=== PATIENT | female | born 1980 | race Two or more races ===

== ENCOUNTER 2016-07-27 10:27 | Emergency (ER) | payer SELFPAY ==
[~2016-07-27] VITALS: Ht 162.6 cm; Wt 65.8 kg
== END 2016-07-27 11:15 | disposition home or self-care (01) ==
LOC: EDBD 10:27 → ER 10:38
DX: T40.1X1A Poisoning by heroin, accidental (unintentional), initial encounter (principal); F17.210 Nicotine dependence, cigarettes, uncomplicated; F12.10 Cannabis abuse, uncomplicated; Y93.9 Activity, unspecified; Y99.9 Unspecified external cause status; Y92.9 Unspecified place or not applicable

== ENCOUNTER 2018-11-16 14:33 | Emergency (ER) | payer SELFPAY ==
[~2018-11-16] VITALS: Ht 170.2 cm; Wt 65.8 kg
[2018-11-16] MEDS ORDERED: SODIUM CHLORIDE 0.9% 1,000 ML IV ONE ×2 (16:00→17:45)
[2018-11-16 16:37] LABS: Basophils # (auto) 0.1 uL; Eosinophils # (auto) 0 uL; Eosinophils % (auto) 0.1 % (0.0-7.0); Hematocrit 33.9 % (36.0-46.0); Hemoglobin 10.3 g/dL (12.2-16.2); Lymphocytes % (auto) 19.8 % (10.0-50.0); Mean Corpuscular Hemoglobin 23.1 pg (28.0-32.0); Mean Corpuscular Hgb Conc. 30.3 g/dL (32.0-36.0); Mean Corpuscular Volume 76.4 fL (80.0-100.0); Monocytes # (auto) 0.2 uL; Monocytes % (auto) 4.2 % (0.0-12.0); Neutrophils # (auto) 3.9 uL; Neutrophils % (auto) 74.9 % (37.0-80.0); Platelet Count (auto) 280 10^3/uL (140-450); Red Blood Cells 4.44 10^6/uL (4.0-5.20); White Blood Cell 5.2 10^3/uL (4.4-10.8)
[2018-11-16 16:41] LABS: Red Cell Distribution Width 21.3 % (11.8-14.3)
[2018-11-16 16:44] LABS: Albumin 3.3 g/dL (3.4-5.0); Anion Gap 9 (5-15); Blood Alcohol < 3.0 mg/dL (0-5); Calcium 8.5 mg/dL (8.5-10.1); Carbon Dioxide 23 mmol/L (21-32); Chloride 107 mmol/L (98-107); Glucose 102 mg/dL (74-106); Potassium 3.7 mmol/L (3.5-5.1); Sodium 139 mmol/L (136-145)
[2018-11-16 16:52] LABS: Alanine Aminotransferase 17 U/L (13-56); Alkaline Phosphatase 76 U/L (45-117); Aspartate Aminotransferase 22 U/L (15-37); BUN/Creatinine Ratio 10.7; Bilirubin, Total 0.5 mg/dL (0.2-1.0); Blood Urea Nitrogen 8 mg/dL (7-18); GFR African American 112 mL/min; GFR Non-African American 92 mL/min; Total Protein 7.8 g/dL (6.4-8.2)
[2018-11-16 17:50] LABS: Urine Pregnacy Test Negative (Negative)
[2018-11-16 17:52] LABS: Urine Bacteria NONE SEEN /hpf (None Seen); Urine Blood Negative /uL (Negative); Urine Specific Gravity 1.007 (1.001-1.035); Urine WBC <1 /hpf (0 - 5)
[2018-11-16 18:08] LABS: Alcohol, Urine < 3.0 mg/dL (0-5)
[2018-11-16 18:17] LABS: Amphetamine Screen, Urine NEGATIVE (NEGATIVE); Barbiturate Scree,Urine NEGATIVE (NEGATIVE); Benzodiazephine Screen, Urine NEGATIVE (NEGATIVE); Cannabinoid Screen, Urine NEGATIVE (NEGATIVE); Cocaine Screen, Urine NEGATIVE (NEGATIVE); Opiate Scree,Urine POSITIVE (NEGATIVE); Phencyclidine Screen, Urine NEGATIVE (NEGATIVE)
[2018-11-17 06:18] VITALS: BP 125/84
== END 2018-11-17 06:19 | disposition home or self-care (01) ==
LOC: ER 14:33 → EDBD 14:33 → EDSEX 14:33 → ER 11-17 06:19
DX: F60.2 Antisocial personality disorder (principal); F11.10 Opioid abuse, uncomplicated; F17.210 Nicotine dependence, cigarettes, uncomplicated; Z98.51 Tubal ligation status; Z76.5 Malingerer [conscious simulation]
CPT/HCPCS: 36415; 80053; 80307; 80320; 81001; 81025; 84484; 85025; 96360; 96361; 99284; J7030

== ENCOUNTER 2019-09-14 06:39 | Emergency (ER) | payer SELFPAY ==
[~2019-09-14] VITALS: Ht 162.6 cm; Wt 59.9 kg
[2019-09-14 07:28] VITALS: BP 127/82
[2019-09-14] MEDS ORDERED: LIDOCAINE 1% HCL (LOCAL ANESTH.) INJ 20ML MDV IJ ONE (07:45)
[2019-09-14] MEDS ORDERED: cefTRIAXone SOD 1,000 MG VL IM ONE (07:45)
[2019-09-14] MEDS ORDERED: IBUPROFEN 800 MG TAB PO ONE (07:45)
== END 2019-09-14 08:03 | disposition home or self-care (01) ==
LOC: ER 06:39
DX: L03.116 Cellulitis of left lower limb (principal); L03.115 Cellulitis of right lower limb; F17.210 Nicotine dependence, cigarettes, uncomplicated; F11.10 Opioid abuse, uncomplicated; Z98.51 Tubal ligation status
CPT/HCPCS: 96372; 99283; J0696; J2001

== ENCOUNTER 2024-06-09 14:56 | Inpatient (IN) | payer OTHER ==
[~2024-06-09] VITALS: Ht 165.1 cm; Wt 54.4 kg
[2024-06-09] MEDS: MORPHINE SULFATE 4 MG/ML SYR/VIAL IV ONE (15:15)
[2024-06-09] MEDS: ONDANSETRON HCL 4 MG/2 ML VIAL IV ONE (15:15)
[2024-06-09] MEDS: SODIUM CHLORIDE 0.9% 1,000 ML IV ONE ×3 (15:15→16:45)
--- NOTE | 2024-06-09 15:17 | ED.PDOC ---
GI ASSESSMENT HPI Comments 44 year old female JOE presents to the ED with chief complaint of abdominal pain. Patient reports that she has been experiencing suprapubic abdominal pain with associated symptoms of head and neck pain along with orange colored urine being noted. EMS relays patient was cool to the touch on route. Patient denies any dysuria, hematuria, N/V/D, or fever. Chief Complaint: Abdominal Pain Time Seen by MD: 15:14 Primary Care Provider: NONE Reviewed Notes: Nurses Notes, Film Spooler Notes, Medications, Allergies Allergies: Coded Allergies: NO KNOWN ALLERGIES (Unverified , 07/27/16) Information Source: Patient, Emergency Med Personnel Mode of Arrival: EMS Timing: Days Duration: Since onset Prehospital treatment: None Quality: Aching Vomitus: None Stool: Normal Severity: Moderate Recent: None Recent Hx of: None Pain Location: Suprapubic Modifying Factors: Nothing Associated sign and symptoms: Abdominal Pain, Other (Dolph colored urine, hea dache) Past Medical History PAST MEDICAL HISTORY: Denies 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 Family History Family History: Reviewed,noncontributory to illness Social History Smoker: Cigarettes Alcohol: Occasionally Drugs: Heroin Lives In: Home Constitutional: denies: chills, diaphoresis, fatigue, fever, malaise, sweats, weakness, others EENTM: denies: blurred vision, double vision, ear bleeding, ear discharge, ear drainage, ear pain, ear ringing, eye pain, eye redness, hearing loss, mouth pain, mouth swelling, nasal discharge, nose bleeding, nose congestion, nose pain, photophobia, tearing, throat pain, throat swelling, voice changes, others Respiratory: denies: cough, hemoptysis, orthopnea, SOB at rest, shortness of breath, SOB with excertion, stridor, wheezing, others Cardiovascular: denies: chest pain, dizzy spells, diaphoresis, Dyspnea on exertion, edema, irregular heart beat, left arm pain, lightheadedness, palpitations, PND, syncope, others Gastrointestinal: reports: abdominal pain, others (Dolph colored urine); denies: abdomen distended, blood streaked bowels, constipated, diarrhea, dysphagia, difficulty swallowing, hematemesis, melena, nausea, poor appetite, poor fluid intake, rectal bleeding, rectal pain, vomiting Genitourinary: denies: abnormal vagina bleeding, burning, dyspareunia, dysuria, flank pain, frequency, hematuria, incontinence, pain, , vagina discharge, urgency, others Neurological: reports: headache; denies: dizziness, fainting, left sided numbness, left sided weakness, numbness, paresthesia, pre-existing deficit, right sided numbness, right sided weakness, seizure, speech problems, tingling, tremors, weakness, others Musculoskeletal: denies: back pain, gout, joint pain, joint swelling, muscle pain, muscle stiffness, neck pain, others Integumetry: denies: bruises, change in color, change in hair/nails, dryness, laceration, lesions, lumps, rash, wounds, others Allergic/Immunocompromised: denies: Difficulty Healing, Frequent Infections, Hives, Itching, others Hematologic/Lymphatic: denies: anemia, blood clots, easy bleeding, easy bruising, swollen glands, others Endocrine: denies: excessive hunger, excessive sweating, excessive thirst, excessive urination, flushing, intolerance to cold, intolerance to heat, unexplained weight gain, unexplained weight loss, others Psychiatric: denies: anxiety, bipolar disorder, depression, hopeless, panic disorder, schizophrenia, sleepless, suicidal, others All Other Systems: Reviewed and Negative Physical Exam General Appearance: Moderate Distress, Normal HEENT: Normal ENT Inspection, PERRL/EOMI Neck: Full Range of Motion, Non-Tender, Normal, Normal Inspection Respiratory: Chest Non-Tender, Lungs Clear, No Accessory Muscle Use, No Respi ratory Distress, Normal Breath Sounds Cardiovascular: No Edema, No JVD, No Murmur, No Gallop, Normal Peripheral Pulses, Regular Rate/Rhythm Breast Exam: Deferred Gastrointestinal: No Organomegaly, Non Tender, No Pulsatile Mass, Normal Bowel Sounds, Soft Genitalia: Deferred Pelvic: Deferred Rectal: Deferred Extremities: No calf tenderness, Normal capillary refill, Normal inspection, Normal range of motion, Non-tender, No pedal edema Musculoskeletal : Apperance: Normal Neurologic: Alert, deck officer II-XII nml as Tested, No Motor Deficits, Normal Affect, Normal Mood, No Sensory Deficits Cerebellar Function: NOT DONE Reflexes: NOT DONE Skin: Dry, Normal Color, Warm Peripheral Pulses: 3+ Radial (R), 3+ Radial (L) Lymphatic: No Adenopathy Was a procedure done? Was a procedure done?: Yes Sedation Sedation?: Yes Informed consent obtained: Yes Sedation start time: 17:05 Sedation end time: 17:15 Sedation total time: 10 minutes Central Line Recorder of insertion practice: Salvage Winder Indication: Suspected infection Room prepared for procedure: Yes Salvage Winder performed hand hygien: Yes Maximal sterile barrier precau: Mask/Eye shield, Sterile gown, Cap, Sterlie gloves, Large sterlie drape Skin Preparation: Chlorhexidine gluconate Skin preparation completely dr: Yes Insertion site: Right, Internal jugular Central line catheter type: [id number] dialysis Number of lumens: 3 Post Assessment: Chest X-Ray, Proper placement Informed consent obtained: Yes Risks/benefits/alt described: Yes Intubation Indication: Respiratory Insufficiency, Airway Protection Prep: Preoxygenation Pretreated with: Sedation Medicated with: Other (20mg Etomidate, 100mg Rocuronium) Intubation Approach: Orotracheal Intubation size: cm (8) Informed consent obtained: Yes Risks/benefits/alt described: Yes UTO Consent Supervised respiratory therapist performing intubation. GI differential Dx Differential Diagnosis: Constipation, Diverticular disease, Esophagitis, Gastritis/PUD, Gastroenteritis X-Ray, Labs, Meds, VS Vital Signs Date Time Temp Pulse Resp B/P (MAP) Pulse Ox O2 Delivery O2 Flow Rate FiO2 06/09/24 17:00 119 06/09/24 16:08 119 30 123/86 (98) 70 06/09/24 16:08 119 30 70 Nasal Cannula* 6 44 Lab Test 06/09/24 16:44 06/09/24 15:20 Range/Units Blood Gas Specimen Type Arterial Blood Gas Sample Site Left radial Blood Gas Patient Temperature 37.0 Arterial Blood Date Drawn [id number] Arterial Blood pH 7.348 L 7.350-7.450 Arterial Blood Partial Pressure CO2 29.2 L 32.0-45.0 mmHg Arterial Blood Partial Pressure O2 49.2 *L 83.0-108.0 mmHg Arterial Blood HCO3 15.7 L 21.0-28.0 mmol/L Arterial Blood Oxygen Saturation 80.0 *L 94.0-98.0 % Arterial Blood Base Excess -8.7 L -2.0-3.0 mmol/L Arterial Blood Oxyhemoglobin 79.1 L 94.0-98.0 % Arterial Blood Carboxyhemoglobin 0.7 0.5-1.5 % Arterial Blood Methemoglobin 0.4 0.0-1.5 % René Test Yes Blood Gas Total Hemoglobin 11.70 L 12.0-16.0 g/dL Blood Gas Liter Flow 15.00 Blood Gas Modality Mask - nrb FiO2 % 100.0 Blood Gas Critical Value Read Back Yes Blood Gas Notified Whom Dr. elisabeth fink Blood Gas Notified Time [id number] Blood Gas Notified By Surveyor Helper yuriy alanis White Blood Count Pending Red Blood Count Pending Hemoglobin Pending Hematocrit Pending Mean Corpuscular Volume Pending Mean Corpuscular Hemoglobin Pending Mean Corpuscular Hemoglobin Concent Pending Red Cell Distribution Width Pending Platelet Count Pending Mean Platelet Volume Pending Neutrophils (%) (Auto) Pending Lymphocytes (%) (Auto) Pending Monocytes (%) (Auto) Pending Basophils (%) (Auto) Pending Neutrophils # (Auto) Pending Lymphocytes # (Auto) Pending Monocytes # (Auto) Pending Sodium Level 138 136-145 mmol/L Potassium Level 3.1 L 3.5-5.1 mmol/L Chloride Level 102 98-107 mmol/L Carbon Dioxide Level 18 L 20-31 mmol/L Anion Gap 18 H 5-15 Blood Urea Nitrogen 79 H 9-23 mg/dL Creatinine 2.22 H 0.550-1.02 mg/dL Glomerular Filtration Rate Calc 28 >90 mL/min BUN/Creatinine Ratio 35.6 H 10.0-20.0 Serum Glucose 82 74-106 mg/dL Calcium Level 10.2 8.7-10.4 mg/dL Magnesium Level 2.2 1.6-2.6 mg/dL Total Bilirubin 0.9 0.2-1.0 mg/dL Aspartate Amino Transferase (AST) 102 H 13-40 U/L Alanine Aminotransferase (ALT) 32 7-40 U/L Alkaline Phosphatase 184 H 46-116 U/L Troponin I High Sensitivity < 3 L </=34 ng/L Total Protein 6.4 5.7-8.2 g/dL Albumin 3.6 3.2-4.8 g/dL Amylase Level < 20 L 30-118 U/L Lipase 21 12-53 U/L Patient alert. Complaining of suprapubic pain. Vitals stable. Answering all questions. Continues to be in severe pain. Establish intravenous access. Was given fluids. Possible sepsis from urine. Blood pressure elevated. Possibly from pain. Explained to the patient. Continue cardiac monitoring. Patient is saturation has been low. Gap is increased. Potassium slightly low. Rule out a clot. Spoke with patient about contrast for PE study. Risk and benefit. Was given Mucomyst to protect her kidneys. Time of 1ST Reevaluation: 16:14 Reevaluation 1ST: Unchanged Patient Education/Counseling: Diagnosis, Treatment Family Education/Counseling: No Family Present Departure 1 Departure Time of Disposition: 15:51 Impression: Primary Impression: Acute respiratory failure Qualified Codes: J96.01 - Acute respiratory failure with hypoxia Additional Impressions: Sepsis due to urinary tract infection Acute abdominal pain Acute tubular necrosis Disposition: ADMITTED INPATIENT Admit to: Med Surg Condition: Guarded Critical Care Note Critical Care Time?: Yes (90 min-critical care time only) Stability Stability form required: No Heart Score Heart Score: Heart Score Response (Comments) Value History N/A 0 EKG N/A 0 Age N/A 0 Risk Factors N/A 0 Troponin N/A 0 Total 0 I personally scribed for AURORA FINK MD ([email or web address]) on 06/09/24 at 15:17. Electronically submitted by Angel Craig ([email or web address]). I personally scribed for AURORA FINK MD ([email or web address]) on 06/09/24 at 17:04. Electronically submitted by Angel Craig ([email or web address]). I personally scribed for AURORA FINK MD ([email or web address]) on 06/09/24 at 17:07. Electronically submitted by Angel Craig ([email or web address]). AURORA FINK MD Jun 09, 2024 15:17
[2024-06-09 16:07] LABS: Alanine Aminotransferase 32 U/L (7-40); Albumin 3.6 g/dL (3.2-4.8); Anion Gap 18 (5-15); BUN/Creatinine Ratio 35.6 (10.0-20.0); Calcium 10.2 mg/dL (8.7-10.4); Chloride 102 mmol/L (98-107); Glucose 82 mg/dL (74-106); Lipase 21 U/L (12-53); Magnesium 2.2 mg/dL (1.6-2.6); Sodium 138 mmol/L (136-145)
[2024-06-09 16:08] VITALS: PULSE 119; RESP 30; O2SAT 70
[2024-06-09 16:08] LABS: Bilirubin, Total 0.9 mg/dL (0.2-1.0); Total Protein 6.4 g/dL (5.7-8.2)
[2024-06-09 16:31] LABS: Alkaline Phosphatase 184 U/L (46-116); Amylase < 20 U/L (30-118); Aspartate Aminotransferase 102 U/L (13-40); Blood Urea Nitrogen 79 mg/dL (9-23); Carbon Dioxide 18 mmol/L (20-31); Potassium 3.1 mmol/L (3.5-5.1)
[2024-06-09] MEDS: IOHEXOL 350 MG/ML 100ML IJ ONE (16:41)
[2024-06-09] MEDS: cefTRIAXone 1GM/50ML D5W 50 ML IV ONE (16:45)
[2024-06-09] MEDS: AZITHROMYCIN 500MG/ 250ML 250 ML IV ONE (16:45)
[2024-06-09] MEDS: ACETYLCYSTEINE ORAL for CIN 20%(200MG/ML) 4ML PO ONE (16:45)
[2024-06-09] MEDS: HEPARIN SODIUM (PORCINE) 5000 UNITS/ML 1ML VIAL IV ONE ×2 (16:45→18:30)
[2024-06-09 16:49] LABS: Base Excess -8.7 mmol/L (-2.0-3.0)
[2024-06-09 17:26] VITALS: BP 126/75; PULSE 117; RESP 18; O2SAT 85
[2024-06-09 17:39] LABS: White Blood Cell 2.9 10^3/uL (4.4-10.8)
[2024-06-09] MEDS: ETOMIDATE (2MG/ML) 20ML VIAL IV ONE ×2 (17:39→17:43)
[2024-06-09 17:42] LABS: Hematocrit 35.2 % (36.0-46.0); Mean Corpuscular Hemoglobin 22.5 pg (28.0-32.0); Mean Corpuscular Hgb Conc. 31.2 g/dL (32.0-36.0); Platelet Count (auto) 58 10^3/uL (140-450); Red Blood Cells 4.89 10^6/uL (4.0-5.20); Red Cell Distribution Width 19.1 % (11.8-14.3)
[2024-06-09] MEDS: ROCURONIUM 10MG/ML 10ML VIAL IV ONE ×2 (17:42→17:43)
[2024-06-09] MEDS: MIDAZOLAM DRIP 50 mg/50mL 50 ML IV SCH (17:43)
[2024-06-09] MEDS: MIDAZOLAM DRIP 50 mg/50mL 50 ML IV ONE (17:43)
[2024-06-09 17:58] LABS: INR 1.07 (0.9-1.15); Partial Thromboplastin Time 36.4 SEC (24.5-34.5); Prothrombin Time 11.3 sec (9.3-11.8)
[2024-06-09 18:10] LABS: Amphetamine Screen, Urine Neg (NEGATIVE)
[2024-06-09 18:11] LABS: Opiate Scree,Urine Neg (NEGATIVE); Phencyclidine Screen, Urine Neg (NEGATIVE)
[2024-06-09 18:24] LABS: Urine Bacteria FEW /hpf (None Seen); Urine Blood 1+ /uL (Negative); Urine Clarity Turbid (Clear); Urine Color Yellow (Yellow); Urine Protein, UAD 1+ (Negative); Urine Specific Gravity 1.017 (1.001-1.035); Urine Urobilinogen Normal (Negative); Urine WBC 4 /hpf (0 - 5); Urine pH 5.5 (5.0-9.0)
[2024-06-09 18:28] LABS: Barbiturate Scree,Urine Neg (NEGATIVE); Benzodiazephine Screen, Urine Neg (NEGATIVE); Cannabinoid Screen, Urine Neg (NEGATIVE); Cocaine Screen, Urine Neg (NEGATIVE)
[2024-06-09] MEDS: HEPARIN DRIP/D5W 100UNITS/ML 250 ML IV SCH ×2 (18:30→20:59)
[2024-06-09 18:31] LABS: Lactic Acid w/Reflex 6.5 mmol/L (0.4-2.0)
--- NOTE | 2024-06-09 18:49 | DVH ---
CLINICAL HISTORY: druguse TECHNIQUE: Helical imaging carried out from skull base to vertex without intravenous contrast. This e xam was performed according to our departmental dose optimization program. Up-to-date CT equipment an d radiation dose reduction techniques are utilized as appropriate. CTDIVol: [CTDIvol] mGy DLP: 879.25 mGy-cm WID: COMPARISON: None FINDINGS: The ventricles and subarachnoid spaces are normal in size and configuration. There is no midline beverley ft or mass effect. The brantley white matter interfaces are maintained. The basal cisterns are patent. Th ere is no evidence of acute intracranial hemorrhage or extra-axial fluid collection. The mastoid air cells and visualized paranasal sinuses are well-aerated. IMPRESSION: No acute intracranial abnormality.
--- NOTE | 2024-06-09 18:51 | DVH ---
EXAM: XY CHEST XRAY 1 VIEW TECHNIQUE: Single frontal chest radiograph CLINICAL HISTORY: POST NG/Intubation COMPARISON: None Findings/Impression: Frontal chest radiograph demonstrates no acute osseous or superficial soft tissue abnormalities. Endotracheal tube terminates 5.5 cm from the giselle. Enteric tube is overlying the plane of the stoma ch. Right sided IJ catheter terminates near the proximal SVC. The trachea is midline. The cardiac silhouette and mediastinum are within normal limits. Moderate to large right pleural effusion with compressive atelectasis and tracking into the fissure. A superimposed infectious process is not excluded. No pneumothorax.
[2024-06-09 18:58] VITALS: BP 147/82; PULSE 131; RESP 28; O2SAT 76
[2024-06-09] MEDS: SODIUM BICARB 8.4% 50Meq/50ml SYR INJ ONE ×2 (18:59→22:54)
[2024-06-09 19:09] LABS: Band Neutrophils % (manual) 5; Basophils % (manual) 0 (0.0-2.0); Blast Cells 0; Eosinophils % (manual) 0 (0-7); Lymphocytes % (manual) 23 (10.0-50.0); Metamyelocytes % 0; Monocytes % (manual) 4 (0-12); Myelocytes % 0; Promyelocytes % 0; Reactive Lymphocytes 0
[2024-06-09 19:10] LABS: Anisocytosis Slight; Hypochromia Moderate; Platelet Estimate Decreased
[2024-06-09 19:16] LABS: Hemoglobin 9.8 g/dL (12.2-16.2)
[2024-06-09 19:18] LABS: Hematocrit 31.4 % (36.0-46.0); Mean Corpuscular Hemoglobin 22.4 pg (28.0-32.0); Mean Corpuscular Hgb Conc. 31.3 g/dL (32.0-36.0); Mean Corpuscular Volume 71.8 fL (80.0-100.0); Platelet Count (auto) 62 10^3/uL (140-450); Red Blood Cells 4.37 10^6/uL (4.0-5.20); Red Cell Distribution Width 19.2 % (11.8-14.3); White Blood Cell 4.7 10^3/uL (4.4-10.8)
--- NOTE | 2024-06-09 19:22 | DVHINCON2 ---
Date of service: Jun 09, [address] Fink Reason for Consultation Ventilator management History of Present Illness 44-year-old woman with no prior medical history of presented with abdominal pain. She began experiencing suprapubic abdominal pain that was associated with head and neck pain. She had orange colored urine. Patient is cold to touch. She was currently sedated, intubated on mechanical ventilation. Stat pulmonology consultation called for bronchoscopy on mechanical ventilation management. Review of systems: Unable to obtain due to patient's critical condition. Past medical history: No prior medical history. Past surgical history: BTL Medications: Reviewed Allergies: No known drug allergies. Family history: No family history of premature CAD. No family history of lung disease. Social history: Smoker of cigarettes. Social alcohol use. Heroin use. Lives at home. Allergies: Coded Allergies: NO KNOWN ALLERGIES (Unverified , 07/27/16) Current Medications Current Medications Medications (Trade) Dose Ordered Sig/Naomie Route PRN Reason Start Time Stop Time Status Last Admin Midazolam HCl 50 ml @ 1 mls/hr Q24H IV 06/09/24 17:00 06/09/24 17:43 Heparin Sodium/ Dextrose 250 ml @ 10 mls/hr Q24H IV 06/09/24 18:30 06/09/24 18:30 Vital Signs Vital Signs Date Time Temp Pulse Resp B/P (MAP) Pulse Ox O2 Delivery O2 Flow Rate FiO2 06/09/24 18:43 127/73 06/09/24 18:32 140 30 72 06/09/24 16:08 Nasal Cannula* 6 44 06/09/24 15:05 98.6 Physical Exam Gen.: Patient lying in bed in medical ICU. Sedated, intubated on mechanical ventilator. Head: Normocephalic, atraumatic. Eyes: PERRLA. Ears: Normal external anatomy. Throat: Endotracheal tube and orogastric tube in place. Neck: Supple, trachea midline. Chest: Transmitted breath sounds bilaterally. Decreased air entry bilaterally. No wheezing. Bibasilar crackles. Cardio vascular: Positive S1, positive S2. Regular rate and rhythm. Abdomen: Positive bowel sounds in all 4 quadrants. Soft, nontender, nondistended. : Girard in place. Normal external genitalia. Rectal: Deferred Skin: Warm, dry. Intact. Extremities: 2+ radial pulses bilaterally. No lower extremity edema. Neuro: Sedated. Labs/Diagnostic Data Labs Test 06/09/24 18:49 06/09/24 17:44 06/09/24 17:19 06/09/24 16:44 Range/Units Urine Color Yellow Yellow Urine Clarity Turbid H Clear Urine pH 5.5 5.0-9.0 Urine Specific [place] 1.017 1.001-1.035 Urine Protein 1+ H Negative Urine Ketones Negative Negative Urine Blood 1+ H Negative /uL Urine Nitrite Negative Negative Urine Bilirubin Negative Negative Urine Urobilinogen Normal Negative mg/dL Urine Leukocyte Esterase Negative Negative /uL Urine RBC 3 0 - 4 /hpf Urine WBC 4 0 - 5 /hpf Urine Squamous Epithelial Cells Mod <5 /hpf Urine Bacteria Few H None Seen /hpf Urine Glucose Normal Normal mg/dL Urine Opiates Screen Neg NEGATIVE Urine Fentanyl Screen Pos NEGATIVE Urine Barbiturates Screen Neg NEGATIVE Urine Phencyclidine Screen Neg NEGATIVE Urine Amphetamines Screen Neg NEGATIVE Urine Benzodiazepines Screen Neg NEGATIVE Urine Cocaine Screen Neg NEGATIVE Urine Cannabinoids Screen Neg NEGATIVE Eosinophils (%) (Auto) 0.0-7.0 % Eosinophils # (Auto) 0-0.8 10 ^3/uL Basophils # (Auto) 0-0.2 10 ^3/uL Differential Total Cells Counted 100.0 100 Neutrophils % (Manual) 68 37.0-80.0 Band Neutrophils % (Manual) 5 Lymphocytes % (Manual) 23 10.0-50.0 Monocytes % (Manual) 4 0-12 Eosinophils % (Manual) 0 0-7 Basophils % (Manual) 0 0.0-2.0 Metamyelocytes % (manual) 0 Myelocytes % (Manual) 0 Promyelocytes % (Manual) 0 Blast Cells % (Manual) 0 Nucleated Red Blood Cells % Reactive Lymphocytes 0 Platelet Estimate Decreased Hypochromasia (manual) Moderate Anisocytosis (manual) Slight Microcytosis Moderate Beta HCG, Quantitative 1.9 1.5-4.2 mIU/mL Blood Gas Specimen Type Arterial Blood Gas Sample Site Left radial Blood Gas Patient Temperature 37.0 Arterial Blood Date Drawn [id number] Arterial Blood pH 7.348 L 7.350-7.450 Arterial Blood Partial Pressure CO2 29.2 L 32.0-45.0 mmHg Arterial Blood Partial Pressure O2 49.2 *L 83.0-108.0 mmHg Arterial Blood HCO3 15.7 L 21.0-28.0 mmol/L Arterial Blood Oxygen Saturation 80.0 *L 94.0-98.0 % Arterial Blood Base Excess -8.7 L -2.0-3.0 mmol/L Arterial Blood Oxyhemoglobin 79.1 L 94.0-98.0 % Arterial Blood Carboxyhemoglobin 0.7 0.5-1.5 % Arterial Blood Methemoglobin 0.4 0.0-1.5 % René Test Yes Blood Gas Total Hemoglobin 11.70 L 12.0-16.0 g/dL Blood Gas Liter Flow 15.00 Blood Gas Modality Mask - nrb FiO2 % 100.0 Blood Gas Critical Value Read Back Yes Blood Gas Notified Whom Dr. elisabeth fink Blood Gas Notified Time [id number] Blood Gas Notified By Chair Post Machine Operator yuriy Uribe 06/09/24 15:20 Range/Units Sodium Level 138 136-145 mmol/L Potassium Level 3.1 L 3.5-5.1 mmol/L Chloride Level 102 98-107 mmol/L Carbon Dioxide Level 18 L 20-31 mmol/L Anion Gap 18 H 5-15 Blood Urea Nitrogen 79 H 9-23 mg/dL Creatinine 2.22 H 0.550-1.02 mg/dL Glomerular Filtration Rate Calc 28 >90 mL/min BUN/Creatinine Ratio 35.6 H 10.0-20.0 Serum Glucose 82 74-106 mg/dL Calcium Level 10.2 8.7-10.4 mg/dL Magnesium Level 2.2 1.6-2.6 mg/dL Total Bilirubin 0.9 0.2-1.0 mg/dL Aspartate Amino Transferase (AST) 102 H 13-40 U/L Alanine Aminotransferase (ALT) 32 7-40 U/L Alkaline Phosphatase 184 H 46-116 U/L Troponin I High Sensitivity < 3 L </=34 ng/L Total Protein 6.4 5.7-8.2 g/dL Albumin 3.6 3.2-4.8 g/dL Amylase Level < 20 L 30-118 U/L Lipase 21 12-53 U/L Assessment Impression: Acute hypoxic respiratory failure On mechanical ventilator Pneumonia Atelectasis Metabolic acidosis Plan: ABG severe acidemia Placed on PC mode, incresed Peep to 16 to improve oxygenation. Adjusted Pinsp to achieve Vt of 400-450. Total pressurse of 32. Poor ventilation and oxygenation due to extensive pneumonia possibly aspiration abdominal contents. Suspected mucous plugs CT chest images demonstrates consolidation in RML and RLL On bronch, there was scant secretions. Limited chest US demonstrated consolidation lung ON Pressors for hemodynamic support Titrate to keep MAP above 65 mmHg. Monitor renal function Monitor electrolytes. Supplement as necessary Monitor ins/outs. GI Prophylaxis DVT prophylaxis Addendum: I was called later in the evening as pt developed a pneumothorax. ABG demonstrated severe acidemia. Overall poor prognosis and high likelihood of demise. Condition: Critical Prognosis: Poor given multiple comorbidities. Rest of plan per hospitalist and other consultants. A total of 60 minutes of critical care time was spent reviewing the patient record, examining the patient, making a diagnostic and therapeutic plan, discussing this plan with the medical personnel, following up on diagnostic studies and following the patient for clinical stability excluding any and all procedures. At least 50% of this time was spent in direct, [id number] contact. Thank you Dr. Fink for allowing me to participate in this patient's care. Further recommendations will depend on patient's clinical course. Please do not hesitate to contact me if you have any questions or concerns. This medical document was created using an electronic medical record system with [employer] dictation system. Although this document has been carefully reviewed, there may still be some phonetic and typographical errors. These areas are purely typographical due to imperfections of the software programs, and do not reflect any compromise in the patient's medical care. Plan discussed with: Other (RN, RT, MD) PANDA GUERRERO MD Jun 09, 2024 19:22
[2024-06-09 19:23] LABS: Basophils % (manual) 0 (0.0-2.0); Blast Cells 0; Eosinophils % (manual) 0 (0-7); Metamyelocytes % 0; Myelocytes % 0; Promyelocytes % 0; Reactive Lymphocytes 0
--- NOTE | 2024-06-09 19:23 | DVHNC2 ---
Procedure - Bronch with scant mucous plugs in right lower lobe. Bronchoscopy procedure note: Indications: Right middle/lower lobe atelectasis, Possible mucous plugging. Medicines: See ED RN notes. Complications: None Procedure: Patient medications and allergies reviewed. Emergent procedure, consent was implied. Patient identification and proposed procedure were verified prior to the procedure by the physician, and a nurse, and the respiratory therapist in ED room. The heart rate, respiratory rate, oxygen saturations, blood pressure, adequacy of pulmonary ventilation, and response to care were monitored throughout the procedure. The physical status of the patient was reassessed after the procedure. After obtaining informed consent, the bronchoscope was introduced through the endotracheal tube and advanced into the trachea bronchial tree of both lungs. The procedure was accomplished without difficulty. The patient tolerated the procedure well. Findings: The trachea is in normal caliber. The giselle is sharp. The tracheobronchial tree of the right lung was examined to at least the first subsegmental level. The bronchial mucosa and anatomy in the right lung are normal. There are no endobronchial lesions. There was copious whitish secretions from right main stem bronchus onward throughout R4-R10. I injected 10 mL saline to remove viscous secretions. The left upper lobe, lingula, and left lower lobe were examined to at least the first subsegmental level. Bronchial mucosa and anatomy in the left upper lobe and lingula are normal. There were no endobronchial lesions. There was no secretions. There was no active bleeding at the completion of the procedure. Estimated blood loss: Less than 5 mL. Impression: Right lower lobe atelectasis due to mucous plugging Mucous plugging from R4-R10 Recommendation: Follow-up RML BAL results. Procedure codes: 48635, bronchoscopy, rigid and flexible, including fluoroscopic guidance, one performed; with bronchial endobronchial removal of mucous plugging, single or multiple sites PANDA GUERRERO MD Jun 09, 2024 19:23
[2024-06-09] MEDS: SODIUM BICARB 8.4% 50Meq/50ml SYR Vial IV ONE (19:30)
[2024-06-09 19:39] LABS: INR 1.16 (0.9-1.15); Prothrombin Time 12.2 sec (9.3-11.8)
[2024-06-09 19:46] VITALS: BP 126/75; PULSE 117; RESP 18; O2SAT 85
[2024-06-09 19:46] LABS: Partial Thromboplastin Time 81.5 SEC (24.5-34.5)
--- NOTE | 2024-06-09 19:55 | DVH ---
CLINICAL HISTORY: LOW O2 STATS TECHNIQUE: CT of the chest was performed without intravenous contrast. This exam was performed accord ing to our departmental dose optimization program. Up-to-date CT equipment and radiation dose reducti on techniques are utilized as appropriate. [Radimetrics Exposure Report] COMPARISON: None FINDINGS: Lower Neck: Unremarkable Axilla, Mediastinum and Rosemarie: A gastric tube courses in the esophagus into the stomach , the tip is n ot visualized in the [id number] No axillary lymphadenopathy. Enlarged mediastinal lymph nodes. Hernández ited evaluation of the rosemarie in the absence of intravenous contrast Heart and Great Vessels: Right IJ central venous catheter with the tip terminating at the mid to lowe r SVC.. Heart size is normal with small pericardial effusion. The thoracic aorta is normal in calibe r. Central pulmonary arteries are normal caliber. Airway, Lungs and Pleura: Endotracheal tube is in place terminating just above the giselle. The trache a and central airways are patent. A few linear secretion/debris in the trachea. Small right and trace left pleural effusions near-complete large consolidation of the right lower lobe and large consolida tion of the right upper lobe with air bronchograms. Additional moderate to large size consolidation i n the left lower lobe and additional patchy airspace opacities throughout the remainder of the aerate d lungs. No pneumothorax Upper Abdomen: Small upper abdominal ascites. Chest Wall and Osseous Structures: Mild multilevel thoracic spondylosis. No destructive osseous lesio n. IMPRESSION: 1. Multifocal pneumonia with large consolidations in the [id number]-left lower lobes and in t he right upper lobe. Consider aspiration as a cause of the pneumonia. 2. Trace left and small right pleural effusions and mild upper abdominal ascites 3. Endotracheal and gastric tubes are in place as described
[2024-06-09 19:58] VITALS: BP 147/82; PULSE 131; RESP 28; O2SAT 76
[2024-06-09 20:10] LABS: Band Neutrophils % (manual) 13; Lymphocytes % (manual) 19 (10.0-50.0); Monocytes % (manual) 10 (0-12); Platelet Estimate Decreased
[2024-06-09 20:11] LABS: Hypochromia Moderate
[2024-06-09 20:12] LABS: Anisocytosis Slight
[2024-06-09] MEDS ORDERED: MORPHINE SULFATE INJ 2 MG/ml SYRG IV PRN (20:30)
[2024-06-09] MEDS ORDERED: SOD CHL 0.9%/ KCL 40MEQ 1,000 ML IV ONE (20:30)
[2024-06-09] MEDS ORDERED: VANCOMYCIN PER PHARMACY 0 MG IV SCH (20:30)
[2024-06-09] MEDS ORDERED: LORazepam 0.5 MG TAB PO PRN (20:30)
[2024-06-09] MEDS: SODIUM CHLORIDE 0.9% 1,000 ML IV SCH (20:30)
[2024-06-09] MEDS ORDERED: MAALOX PLUS or MAALOX 30 ML PO PRN (20:30)
[2024-06-09] MEDS ORDERED: ACETAMINOPHEN 325 MG TAB PO PRN (20:30)
[2024-06-09] MEDS ORDERED: HYDROcodone-ACET 5/325MG TAB PO PRN (20:30)
[2024-06-09] MEDS ORDERED: ONDANSETRON HCL 4 MG/2 ML VIAL IV PRN (20:30)
[2024-06-09] MEDS ORDERED: DOCUSATE SOD 100 MG CAP PO PRN (20:30)
[2024-06-09 20:33] LABS: Base Excess -14.2 mmol/L (-2.0-3.0)
--- NOTE | 2024-06-09 20:49 | DVHHP2 ---
History of Present Illness Reason for Visit: Acute respiratory failure History of Present Illness 44-year-old patient with no stated past medical history comes into the ED with acute respiratory failure abdominal pain patient initially stated that she was having worn colored urine neck pain headaches and and multitude of other symptoms on initial evaluation the patient was only positive for fentanyl no other drugs were noted patient denies any other medical history went into initial respiratory failure was placed on high flow oxygen and had a bronchoscopy completed by Pulmonary in the ED patient was recommended for acute continued management inpatient setting Review of Systems Constitutional: Yes: Weakness; No: Fever, Chills, Sweats, Malaise, Other Respiratory: Cough, Shortness of breath, SOB with excertion, Wheezing Cardiovascular: Palpitations; No: Chest Pain, Orthopnea, Paroxysmal Noc. Dyspnea, Edema, Lt Headedness, Other Gastrointestinal: No: Nausea, Vomiting, Abdominal Pain, Diarrhea, Constipation, Melena, Hematochezia, Other Genitourinary: No Dysuria, No Frequency, No Incontinence, No Hematuria, No Retention, No Other Musculoskeletal: No: other, neck pain, shoulder pain, arm pain, back pain, hand pain, leg pain, foot pain Skin: No: Rash, Lesions, Jaundice, Bruising, Other Neurological: No: Weakness, Numbness, Incoordination, Change in speech, Confusion, Seizures, Other Allergies: Coded Allergies: NO KNOWN ALLERGIES (Unverified , 07/27/16) Medications Current Medications Medications Dose Ordered Sig/Naomie Route Start Time Stop Time Status Last Admin Dose Admin Midazolam HCl 50 ml @ 1 mls/hr Q24H IV 06/09/24 17:00 06/09/24 17:43 1 MLS/HR Heparin Sodium/ Dextrose 250 ml @ 10 mls/hr Q24H IV 06/09/24 18:30 06/09/24 18:30 10 MLS/HR Exam Vital Signs Vital Signs Date Time Temp Pulse Resp B/P (MAP) Pulse Ox O2 Delivery O2 Flow Rate FiO2 06/09/24 20:11 127 130/78 (95) 88 06/09/24 19:58 28 100 06/09/24 19:42 Mechanical Ventilator+ 06/09/24 16:08 6 06/09/24 15:05 98.6 General Appearance: Alert, Oriented X3 (Intubated sedated), Cooperative, moderate distress HEENT: PERRLA Respiratory: Clear to auscultation (Mechanically ventilated), Normal air movement Cardiovascular: Regular rate, Normal S1, Normal S2 Abdominal: Normal bowel sounds, Soft, No tenderness Extremities: No clubbing, No cyanosis, No edema Skin: No rashes, No breakdown Neuro: Normal speech Psych/Mental Status: Mood NL Labs/Xrays Labs Test 06/09/24 18:49 06/09/24 18:40 06/09/24 17:44 06/09/24 17:19 Range/Units White Blood Count 4.7 # 4.4-10.8 10^3/uL Red Blood Count 4.37 4.0-5.20 10^6/uL Hemoglobin 9.8 L 12.2-16.2 g/dL Hematocrit 31.4 #L 36.0-46.0 % Mean Corpuscular Volume 71.8 L 80.0-100.0 fL Mean Corpuscular Hemoglobin 22.4 L 28.0-32.0 pg Mean Corpuscular Hemoglobin Concent 31.3 L 32.0-36.0 g/dL Red Cell Distribution Width 19.2 H 11.8-14.3 % Platelet Count 62 L 140-450 10^3/uL Mean Platelet Volume 9.2 6.9-10.8 fL Neutrophils (%) (Auto) 37.0-80.0 % Lymphocytes (%) (Auto) 10.0-50.0 % Monocytes (%) (Auto) 0.0-12.0 % Basophils (%) (Auto) 0.0-2.0 % Neutrophils # (Auto) 1.6-8.6 10 ^3/uL Lymphocytes # (Auto) 0.4-5.4 10 ^3/uL Monocytes # (Auto) 0-1.3 10 ^3/uL Differential Total Cells Counted 100.0 100 Neutrophils % (Manual) 58 37.0-80.0 Band Neutrophils % (Manual) 13 Lymphocytes % (Manual) 19 10.0-50.0 Monocytes % (Manual) 10 0-12 Eosinophils % (Manual) 0 0-7 Basophils % (Manual) 0 0.0-2.0 Metamyelocytes % (manual) 0 Myelocytes % (Manual) 0 Promyelocytes % (Manual) 0 Blast Cells % (Manual) 0 Reactive Lymphocytes 0 Platelet Estimate Decreased Hypochromasia (manual) Moderate Anisocytosis (manual) Slight Microcytosis Moderate Anuj Cells Few Prothrombin Time 12.2 H 9.3-11.8 sec Prothrombin Time INR 1.16 H 0.9-1.15 Activated Partial Thromboplast Time 81.5 *H 24.5-34.5 SEC Lactic Acid Level 6.9 *H 0.4-2.0 mmol/L Blood Gas Specimen Type Arterial Blood Gas Sample Site Right brachial Blood Gas Patient Temperature 37.0 Arterial Blood Date Drawn [id number] Arterial Blood pH 7.038 *L 7.350-7.450 Arterial Blood Partial Pressure CO2 62.8 *H 32.0-45.0 mmHg Arterial Blood Partial Pressure O2 72.6 L 83.0-108.0 mmHg Arterial Blood HCO3 16.5 L 21.0-28.0 mmol/L Arterial Blood Oxygen Saturation 84.6 *L 94.0-98.0 % Arterial Blood Base Excess -14.2 L -2.0-3.0 mmol/L Arterial Blood Oxyhemoglobin 83.5 L 94.0-98.0 % Arterial Blood Carboxyhemoglobin 0.8 0.5-1.5 % Arterial Blood Methemoglobin 0.5 0.0-1.5 % René Test N/a Blood Gas Total Hemoglobin 11.30 L 12.0-16.0 g/dL Blood Gas Set Respiration Rate 18.0 Blood Gas Modality Vent - ac FiO2 % 100.0 Blood Gas Tidal Volume 450.0 Blood Gas PEEP or CPAP 8.0 Blood Gas Critical Value Read Back Yes Blood Gas Notified Whom Md elisabeth fink Blood Gas Notified Time [id number] Blood Gas Notified By Rt lauren link Urine Color Yellow Yellow Urine Clarity Turbid H Clear Urine pH 5.5 5.0-9.0 Urine Specific [place] 1.017 1.001-1.035 Urine Protein 1+ H Negative Urine Ketones Negative Negative Urine Blood 1+ H Negative /uL Urine Nitrite Negative Negative Urine Bilirubin Negative Negative Urine Urobilinogen Normal Negative mg/dL Urine Leukocyte Esterase Negative Negative /uL Urine RBC 3 0 - 4 /hpf Urine WBC 4 0 - 5 /hpf Urine Squamous Epithelial Cells Mod <5 /hpf Urine Bacteria Few H None Seen /hpf Urine Glucose Normal Normal mg/dL Urine Opiates Screen Neg NEGATIVE Urine Fentanyl Screen Pos NEGATIVE Urine Barbiturates Screen Neg NEGATIVE Urine Phencyclidine Screen Neg NEGATIVE Urine Amphetamines Screen Neg NEGATIVE Urine Benzodiazepines Screen Neg NEGATIVE Urine Cocaine Screen Neg NEGATIVE Urine Cannabinoids Screen Neg NEGATIVE Eosinophils (%) (Auto) 0.0-7.0 % Eosinophils # (Auto) 0-0.8 10 ^3/uL Basophils # (Auto) 0-0.2 10 ^3/uL Nucleated Red Blood Cells % Beta HCG, Quantitative 1.9 1.5-4.2 mIU/mL Test 06/09/24 16:44 06/09/24 15:20 Range/Units Blood Gas Liter Flow 15.00 Sodium Level 138 136-145 mmol/L Potassium Level 3.1 L 3.5-5.1 mmol/L Chloride Level 102 98-107 mmol/L Carbon Dioxide Level 18 L 20-31 mmol/L Anion Gap 18 H 5-15 Blood Urea Nitrogen 79 H 9-23 mg/dL Creatinine 2.22 H 0.550-1.02 mg/dL Glomerular Filtration Rate Calc 28 >90 mL/min BUN/Creatinine Ratio 35.6 H 10.0-20.0 Serum Glucose 82 74-106 mg/dL Calcium Level 10.2 8.7-10.4 mg/dL Magnesium Level 2.2 1.6-2.6 mg/dL Total Bilirubin 0.9 0.2-1.0 mg/dL Aspartate Amino Transferase (AST) 102 H 13-40 U/L Alanine Aminotransferase (ALT) 32 7-40 U/L Alkaline Phosphatase 184 H 46-116 U/L Troponin I High Sensitivity < 3 L </=34 ng/L Total Protein 6.4 5.7-8.2 g/dL Albumin 3.6 3.2-4.8 g/dL Amylase Level < 20 L 30-118 U/L Lipase 21 12-53 U/L Assessment/Plan Assessment/Plan Admit to ICU Acute respiratory failure multifocal pneumonia Patient currently intubated for acute respiratory failure management Pulmonary following for vent management Right IJ placed subclavian Possible sepsis Severe lactic acidosis continue with aggressive IV hydration Due to pneumonia IV antibiotics Sedation with Versed and fentanyl Continue with IV antibiotics IV steroids b.i.d. Critical care time 40 minutes Plan discussed with: Patient My Orders Orders - GERONIMO COOK MD Procedure Category Date Status Time Vancomycin Per PHA 06/09/24 Transmitted Pharmacy 20:30 Zosyn Extended PHA 06/09/24 Transmitted Infusion 22:00 Methylprednisolone PHA 06/09/24 Transmitted Sod Succ (Solu Medrol 22:00 Ns W Potassium 40meq PHA 06/09/24 Transmitted 20:30 Admit ADMIT 06/09/24 Transmitted 20:24 Code Status CODE 06/09/24 Transmitted 20:24 Vital Signs [facility] 06/09/24 In Process 20:24 Review Orders With [facility] 06/09/24 In Process Adm. 20:24 Sodium Chloride 0.9% [facility] 06/09/24 Transmitted 20:30 Lorazepam Tablet [facility] 06/09/24 Transmitted (Ativan Tablet) 20:30 Alum & Mag [facility] 06/09/24 Transmitted Hydrox-Simethicone 20:30 Docusate Sodium [facility] 06/09/24 Transmitted Capsule (Colace 20:30 Acetaminophen Tablet [facility] 06/09/24 Transmitted (Tylenol Tablet) 20:30 Notify Md Of Changes [facility] 06/09/24 In Process From Base 20:24 Advance Directive [facility] 06/09/24 In Process 20:24 Basic Metabolic Panel LAB 06/10/24 Verified 04:00 Urinalysis LAB 06/09/24 Logged 20:24 Complete Blood Count LAB 06/10/24 Verified 04:00 Patient Condition ORDERS 06/09/24 Transmitted 20:24 Allergies [facility] 06/09/24 In Process 20:24 Hydrocodone-Acet [facility] 06/09/24 Transmitted 5/325mg Tab ([place] 20:30 Ondansetron Hcl [facility] 06/09/24 Transmitted (Zofran) 20:30 Morphine 2mg Iv Q4hprn [facility] 06/09/24 Transmitted 20:30 Stat Ekg For Chest [facility] 06/09/24 In Process Pain 20:24 Notify Md Of Changes [facility] 06/09/24 In Process From Base 20:24 Cigarette Inspector For [facility] 06/09/24 In Process 24 Hours 20:24 Emergency Dysrhythmia [facility] 06/09/24 In Process Protocol 20:24 Rhythm Strips Once [facility] 06/09/24 In Process Every Shift 20:24 Oxygen By Nasal RT 06/09/24 Transmitted Cannula 20:24 Problem List: (1) On mechanically assisted ventilation (2) Heroin overdose (3) Acute respiratory failure (4) Acute tubular necrosis (5) Acute abdominal pain (6) Sepsis due to urinary tract infection Date of Service: Jun 09, 2024 Billing Provider: GERONIMO COOK MD Common Visit Codes: 44057-ODLXDEXI CARE 30-74 MIN GERONIMO COOK MD Jun 09, 2024 20:49
[2024-06-09 21:03] LABS: Base Excess -5.2 mmol/L (-2.0-3.0)
[2024-06-09 21:36] VITALS: BP 137/82; PULSE 131; RESP 28; O2SAT 78
[2024-06-09] MEDS: ALBUTEROL SULF 2.5 MG/0.5ML(0.5%) NEB SOLN NEB ONE (21:36)
[2024-06-09] MEDS: IPRATROPIUM BROM 0.5 MG/2.5ML INH SOL NEB ONE (21:36)
[2024-06-09] MEDS: VANCOMYCIN 1GM/250ML KIT 250 ML IV ONE (21:37)
[2024-06-09] MEDS: POTASSIUM CHLORIDE 40 MEQ in SODIUM CHLORIDE 0.9% 1,000 ML IV ONE (21:51)
[2024-06-09] MEDS: PIPERACILLIN-TAZOB 3.375GM 100 ML IV SCH (21:51)
[2024-06-09] MEDS: methylPREDNISolone SOD SUCC 40 MG/ML VL IV SCH (21:51)
--- NOTE | 2024-06-09 22:11 | DVH ---
CHEST RADIOGRAPH Indication: ET TUBE PLACEMENT Technique: Single frontal view of the chest was obtained COMPARISON: XY CHEST XRAY 1 VIEW on DOS: 06/09/24 FINDINGS: Lines and Tubes: Enteric tube courses below the diaphragm with tip collimated from view. Endotracheal terminates at the level of the giselle. Recommend at least 2 cm retraction. Right-sided central veno us catheter is seen with tip in the lower SVC. Lungs: Stable right-sided lung opacities. Pleura: Small right pleural effusion. No pneumothorax. Cardiomediastinal contours: Unremarkable Bones: Unremarkable IMPRESSION: 1. Stable right-sided lung opacities. 2. Stable small right pleural effusion 3. Endotracheal tube terminates at the level of the giselle. Recommend at least 2 cm retraction. [facility] er lines and tubes as above.
[2024-06-09] MEDS: NOREPINEPHRINE 8 MG/250ML KIT 250 ML IV ONE (22:15)
[2024-06-09] MEDS: NOREPINEPHRINE 8 MG/250ML KIT 250 ML IV SCH (22:26)
[2024-06-09] MEDS: EPINEPHrine HCL 250 ML IV SCH (22:30)
[2024-06-09] MEDS: EPINEPHrine HCL 250 ML IV ONE (22:33)
[2024-06-09 22:49] LABS: Base Excess -16.3 mmol/L (-2.0-3.0)
--- NOTE | 2024-06-09 23:16 | DVH ---
EXAM: XY CHEST XRAY 1 VIEW CLINICAL HISTORY: ET TUBE PLACEMENT TECHNIQUE: Single AP view of the chest WID: COMPARISON: XY CHEST XRAY 1 VIEW on DOS: 06/09/24 FINDINGS: Lines and tubes: Endotracheal tube projects above the giselle. Gastric tube descends beneath the level of the diaphragm and tip not visualized in field of view. Right IJ central venous catheter which pro jects over the upper to mid SVC. Defibrillator pads project over the left chest in the left upper qu adrant Chest: The heart size and pulmonary vasculature is within normal limits. Development of a moderate right pneumothorax. Patchy and confluent airspace opacities in the right-gr [id number] lungs The osseous structures are grossly intact. IMPRESSION: 1. Development of a moderate right pneumothorax. 2. Patchy and confluent airspace opacities in the [id number]-left lungs.
[2024-06-10 00:02] VITALS: BP 96/59; PULSE 114; RESP 28
[2024-06-10 00:10] LABS: Basophils # (auto) 0 10 ^3/uL (0-0.2); Basophils % (auto) 0.1 % (0.0-2.0); Eosinophils # (auto) 0 10 ^3/uL (0-0.8); Lymphocytes # (auto) 0.8 10 ^3/uL (0.4-5.4); Neutrophils # (auto) 3.9 10 ^3/uL (1.6-8.6)
[2024-06-10] MEDS: LACTATED RINGER'S 1,000 ML IV ONE (00:10)
[2024-06-10] MEDS: DEXTROSE 50% SYRINGE 50 ML IV ONE (00:11)
[2024-06-10 00:12] LABS: Eosinophils % (auto) 0.8 % (0.0-7.0); Hematocrit 27.4 % (36.0-46.0); Lymphocytes % (auto) 16.5 % (10.0-50.0); Mean Corpuscular Hemoglobin 22.4 pg (28.0-32.0); Mean Corpuscular Hgb Conc. 29.1 g/dL (32.0-36.0); Monocytes # (auto) 0.1 10 ^3/uL (0-1.3); Monocytes % (auto) 1.2 % (0.0-12.0); Neutrophils % (auto) 81.4 % (37.0-80.0); Nucleated Red Blood Cells % 0.3 %; Platelet Count (auto) 47 10^3/uL (140-450); Red Blood Cells 3.55 10^6/uL (4.0-5.20); Red Cell Distribution Width 19.6 % (11.8-14.3); White Blood Cell 4.8 10^3/uL (4.4-10.8)
[2024-06-10] MEDS: PHENYLEPHRINE IV 250 ML IV SCH (00:12)
[2024-06-10] MEDS: PHENYLEPHRINE IV 250 ML IV ONE (00:12)
[2024-06-10 00:24] LABS: Anion Gap 28 (5-15); BUN/Creatinine Ratio 29.3 (10.0-20.0); Chloride 104 mmol/L (98-107); Potassium 3.8 mmol/L (3.5-5.1)
[2024-06-10 00:25] LABS: Bilirubin, Total 0.6 mg/dL (0.2-1.0)
[2024-06-10 00:28] LABS: Alanine Aminotransferase 50 U/L (7-40); Albumin 2.2 g/dL (3.2-4.8); Alkaline Phosphatase 125 U/L (46-116); Aspartate Aminotransferase 164 U/L (13-40); Blood Urea Nitrogen 70 mg/dL (9-23); Calcium 8.2 mg/dL (8.7-10.4); Carbon Dioxide 16 mmol/L (20-31); Creatine Kinase IFCC 604 U/L (34-145); Glucose 183 mg/dL (74-106); Sodium 148 mmol/L (136-145); Total Protein 3.9 g/dL (5.7-8.2)
[2024-06-10] MEDS: ATROPINE SULF 0.5 MG/5ML SYR ONE (00:38)
[2024-06-10 00:40] LABS: Lactic Acid w/Reflex 20.9 mmol/L (0.4-2.0)
[2024-06-10 01:00] VITALS: BP 147/80; RESP 28; TEMP 96.6; O2SAT 92
[2024-06-10] MEDS: HYDROCORTISONE SOD SUCC 100 MG/2ML INJ VIAL IV ONE (01:01)
[2024-06-10 01:22] VITALS: PULSE 75
--- NOTE | 2024-06-10 01:33 | DVH ---
CHEST RADIOGRAPH Indication: CHEST TUBE PLACEMENT Technique: Single frontal view of the chest was obtained COMPARISON: XY CHEST XRAY 1 VIEW on DOS: 06/09/24, XY CHEST XRAY 1 VIEW on DOS: 06/09/24, XY CHEST XRAY 1 VIEW on DOS: 06/09/24 FINDINGS: Lines and Tubes: Interval placement of new right-sided chest tube. Enteric tube courses below the keanu phragm with tip collimated from view. Endotracheal tube terminates above the giselle. Right-sided cent ral venous catheter is seen with tip in the lower SVC. Lungs: Redemonstration of bilateral airspace opacities. Pleura: Interval decrease in right pneumothorax which is now small. Cardiomediastinal contours: Unremarkable Bones: Unremarkable IMPRESSION: 1. Interval placement of new right-sided chest tube with interval decrease in size of right pneumotho rax which is now small. 2. Redemonstration of bilateral airspace opacities.
--- NOTE | 2024-06-10 03:05 | RESUS ---
TAHIR EDOMNDS ASSESSSMENT Initial Information Date: Jun 09, 2024 Time: 23:38 Location of Arrest: ER Arrest Witnessed: Yes CPR started initial time: 23:38 CPR started by whom: Hospital Staff Pre-Hospital Care: ACLS Type of arrest: Cardiac Spontaneous Respirations: No Pulse Present: No Monitoring: ECG, Pulse Oximetry, Apnea, Capnography, Telemetry Crash Cart Opened and Supplies: Yes Comment: ICU holding in ER.pT coded 3 times [id number] Airway Ventilation Breathing at Onset: Oxygen Delivery Method: Mechanical Ventilator Time of first Assisted Ventila: 23:38 Intubated by: Dr Fox intubated earlier prior to code blue. Circulation Circulation #1: Time: 23:38 Pulse Rate (adult): 0 Blood Pressure Systolic: 0 Blood Pressure Diastolic: 0 Circulation #2: Time: 23:42 Circulation Comment: Pulses present at this time. Dr Fox and Dr lei remain at bedside. Defibrillation Defbrillation : Time Defibrillator Applied: 23:40 EKG Rhythm: Sinus Tachycardia, Asystole Compressions: Manual EKG Rhythm: Asystole Medications & Response Medications and Responses #1: Medication Time: 23:39 ADULT Medications Given ADULT: Epinephrine 1 mg, Atropine 1 mg, Sodium Bacarbinate 50 meq Route of Administration: IV EKG Rhythm: Asystole Medications and Responses #2: Medication Time: 23:39 ADULT Medications Given ADULT: Sodium Bacarbinate 50 meq Route of Administration: IV EKG Rhythm: Asystole Medications and Responses #3: Medication Time: 23:44 ADULT Medications Given ADULT: D50 (amp) Route of Administration: IV Medication Comment: FSBS 20 EKG Rhythm: Asystole Medications and Responses #4: Medication Time: 23:48 Medication Comment: FSBS 199 Heart Rate: 166 EKG Rhythm: Sinus Tachycardia Blood Pressure Systolic: 88 Blood Pressure Diastolic: 36 Time Code Ended Time Code Ended: 23:44 Post Arrest Status: Ventilated Outcome of code: Successful Family notified: Yes Code Team Present: Dr Abdirashid Fox. Arturo Fang mental hygiene consultantPhillip Castellon RT. Comment: Dr Lei speaking with patients family at 2348. VS 88/36 166 FSBS 199 DULCE MARIATIANA Jun 10, 2024 03:05
--- NOTE | 2024-06-10 03:27 | RESUS ---
TAHIR BLUE ASSESSSMENT History of Events History of Events: ICU admit hold. Code event 2. Currently on vent prior to code blue Initial Information Date: Jun 10, 2024 Time: 00:27 Location of Arrest: ER Arrest Witnessed: Yes CPR started initial time: 00:27 CPR started by whom: Hospital Staff Pre-Hospital Care: ACLS Type of arrest: Cardiac Monitoring: ECG, Pulse Oximetry, Apnea, Capnography Crash Cart Opened and Supplies: Yes Airway Ventilation Breathing at Onset: Oxygen Delivery Method: Mechanical Ventilator Artificial Ventilation: Bag/Mask Comments: Patient intubated prior to code event. Circulation Circulation #1: Time: 00:28 Pulse Rate (adult): 0 Blood Pressure Systolic: 0 Blood Pressure Diastolic: 0 Circulation Comment: Compressions continue Circulation #2: Time: 00:30 Pulse Rate (adult): 158 Blood Pressure Systolic: 134 Blood Pressure Diastolic: 28 Circulation Comment: ROSC obtained. Dr Fox and Dr Mendenhall remain at bedside. FSBS 291. Medications & Response Medications and Responses #1: ADULT Medications Given ADULT: Epinephrine 1 mg Route of Administration: IV EKG Rhythm: Asystole Blood Pressure Systolic: 0 Blood Pressure Diastolic: 0 Respiratory Rate: 0 EKG Rhythm: Asystole Medications and Responses #2: ADULT Medications Given ADULT: D50 (amp) Route of Administration: IV Time Code Ended Post Arrest Status: Ventilated Outcome of code: Successful Code Team Present: Dr Dominique ARELLANO. TIANA العراقي Jun 10, 2024 03:27
--- NOTE | 2024-06-10 04:09 | RESUS ---
CODE BLUE ASSESSSMENT History of Events History of Events: Code event #3 ICU hold in ER currently on vent. Initial Information Date: Jun 10, 2024 Location of Arrest: ER Arrest Witnessed: Yes CPR started initial time: 00:50 CPR started by whom: Hospital Staff Pre-Hospital Care: ACLS Type of arrest: Cardiac, Witnessed Pulse Present: No Comment: Code event #3 Airway Ventilation Breathing at Onset: Assisted Oxygen Delivery Method: Mechanical Ventilator Artificial Ventilation: Bag/Mask Intubated by: Intubated prior to code blue Circulation Circulation #1: Time: 00:50 Pulse Rate (adult): 0 Blood Pressure Systolic: 0 Blood Pressure Diastolic: 0 Circulation #2: Time: 00:52 Pulse Rate (adult): 0 Blood Pressure Systolic: 0 Blood Pressure Diastolic: 0 Circulation Comment: CPR continues. Circulation #3: Time: 00:54 Pulse Rate (adult): 0 Blood Pressure Systolic: 0 Blood Pressure Diastolic: 0 Circulation #4: Time: 00:56 Pulse Rate (adult): 0 Circulation Comment: CPR continues. Circulation #5: Time: 00:57 Pulse Rate (adult): 60 Blood Pressure Systolic: 94 Blood Pressure Diastolic: 77 Circulation Comment: DR Lei speaking with family. Circulation #6: Time: 00:59 Pulse Rate (adult): 45 Blood Pressure Systolic: 0 Blood Pressure Diastolic: 0 Circulation #7: Time: 00:59 Pulse Rate (adult): 44 Blood Pressure Systolic: 0 Blood Pressure Diastolic: 0 Circulation Comment: Medication stopped per Dr Lei to speak to family. Circulation #8: Time: 01:01 Pulse Rate (adult): 38 Blood Pressure Systolic: 0 Blood Pressure Diastolic: 0 Circulation Comment: No medication given at this time per rianna lei/ Dr Fox. Circulation #9: Time: 01:03 Pulse Rate (adult): 0 Circulation Comment: EKG ordered per Dr Johnson/ Dr Lei. No medications given at this time. Betty speaking with family. Defibrillation Defbrillation : EKG Rhythm: Sinus Bradycardia, PEA Compressions: Manual Pulse Present: Yes Medications & Response Medications and Responses #1: Medication Time: 00:56 ADULT Medications Given ADULT: Epinephrine 1 mg Route of Administration: IV Heart Rate: 45 EKG Rhythm: Asystole Medications and Responses #2: EKG Rhythm: Sinus Rhythm Blood Pressure Systolic: 94 Blood Pressure Diastolic: [address] Lei and Dr Johnson at bedside area speaking with family. Weak pulse. Time Code Ended Time Code Ended: 01:09 Post Arrest Status: Outcome of code: Unsuccessful Patient pronounced by: DR Fox Time patient pronounced: 01:09 Family notified: Yes Attending called: Yes Code Team Present: DR Abdirashid BROOKS Charge Nurse Joce SHEETS RT. TIANA العراقي Jun 10, 2024 04:09
--- NOTE | 2024-06-10 08:29 | PRN ---
Misceleneous Note Note Note Declaration Summary: The patient underwent recurrent resuscitative measures for almost 4 rounds of ACLS. Notified by the nurse that the patient was in asystole and unresponsive. EKG at 1:09 a.m.. of 06/10/2024 showed asystole. Detailed bedside examination revealed: -The patient was unresponsive to verbal or painful stimuli. -Spontaneous Heart and lung sounds are absent. -No spontaneous cardiac or respiratory activity noted over 5 minutes. -No corneal pupillary reflex present while checked twice. -Pupils are fixed and dilated over the examination period. The patient was pronounced clinically at 01:09am of date-06/10/2024 by Clifford Leahy MD, resident. Discussed with Dr. Beltre. Patient's family and patient's nurse were updated by the healthcare team. Patients aunt, aunts and domestic partner was bedside. Patients sister is on way to hospital but she is aware of the updates. Appropriate and empathic condolences were provided to the patient's dear ones. CLIFFORD LEAHY RESIDENT Jun 10, 2024 08:29
--- NOTE | 2024-06-10 08:44 | DVHNC2 ---
SAUMYA LEAHY RESIDENT 06/10/24 0844: Procedure - Ultrasound-guided thoracentesis procedure note: CPT: 41583 Date: 06/10/2024 Time: 12:30 a.m. Presiding factors: 44-year-old female with past medical history significant for polysubstance abuse was brought by EMS with altered mental status and unstable vitals. At the ER [place] patient was found to have pulseless, code blue was called. Addendum with the code blue at bedside, 4 rounds of ACLS, appropriate medications given in each step with atropine, epinephrine, bicarb, fluids. Further workup with the clinical setting reveals multiorgan failure including respiratory failure on intubation, acute renal failure, heart failure, with hydrodynamics instability. Intermittent return of spontaneous circulation but despite having max dose of Levophed, vasopressin, fluid support patient constantly lost pulse needing another round of ACLS. Chest x-ray bedside revealed the Indication: Patient was found with right-sided moderate pneumothorax compressing the mediastinum and the ipsilateral lung with drop of SpO2 in 70s in the bedside CXR despite being intubated on 100% FiO2. Time out: Time-out procedure was done with the bedside RT, RN, MD team's after each step. Consent: Patient unresponsive, urgent implied consent. Indication, risks, and benefits were explained at length. Procedure summary: A timeout was performed and a chest x-ray was reviewed prior to procedure. The appropriate site was confirmed and marked. My hands were washed immediately prior to the procedure, I wore a surgical cap, mask with protective eyewear, sterile gown and sterile gloves throughout the procedure. The patient was prepped and draped in a sterile manner using chlorhexidine scrub after the appropriate level was percussed and confirmed by ultrasound 1% lidocaine was used to anesthetize the skin, subcutaneous tissue, superior aspect of the rib periosteum and parietal pleura. A finder needle was then introduced over the superior aspect of the rib to locate the pleural fluid; whitish sanguinous fluid was aspirated with gush of whooshing sound of air. A 10 blade scalpel was used to neeraj the skin at the insertion site. Thoracentesis needle was then introduced through the skin incision into the pleural space using negative aspiration pressure. The thoracentesis catheter was then threaded without di fficulty. The patient was put in negative pressure chest tube. No immediate complications were noted during the procedure. A postprocedure chest x-ray is pending at the time of this note. The local bleeding from the incision site was sutured causing cessation of any further bleeding. Patient's oxygen requirement reduced and saturating well. Bedside auscultation reveals bilateral equal air entry. Estimated blood loss is less than 5 mL's. PAZ ALFARO MD 06/10/24 1949: Date of Service: Jun 10, 2024 Billing Provider: PAZ ALFARO MD Common Visit Codes: PROCEDURE ONLY Procedure Codes: 70586-[id number] W/INSERT TUBE SAUMYA LEAHY RESIDENT Jun 10, 2024 08:44 PAZ ALFARO MD Jun 10, 2024 19:49
--- NOTE | 2024-06-10 12:43 | ECG ---
[facility] [place] Test Date: 2024-06-10 Test Time: 01:09:13 Pat Name: KHANH RUEDA Department: er Room: [address] [place] [address] Gender: F Insulation Worker Apprentice: er : 1980 Requested By: AURORA GAUTAM Order Number: [id number] Reading MD: Todd Hamm Measurements Intervals [place] Rate: P: 0 MN: 0 QRS: 0 QRSD: 0 T: 0 QT: 0 QTc: 0 Interpretive Statements Uncertain rhythm: review No further analysis attempted - not enough leads could be measured Missing lead(s): I,II,aVR,V2,V4,V6 Electronically Signed On 06-16-2024 14:48:13 PST by Todd Hamm Please click the below link to view image of tracing.
== END 2024-06-10 01:09 | DRG 812 ==
LOC: EDBD 14:56 → ER 14:56 → TELE 20:24
PROVIDERS: ADMIT Hospitalist; ATTEND Hospitalist
PROC: 5A12012 Performance of Cardiac Output, Single, Manual (ICD-10-PCS; 2024-06-09)
PROC: 5A1935Z Respiratory Ventilation, Less than 24 Consecutive Hours (ICD-10-PCS; 2024-06-09)
PROC: 0B938ZZ Drainage of Right Main Bronchus, Via Natural or Artificial Opening Endoscopic (ICD-10-PCS; 2024-06-09)
PROC: 5A2204Z Restoration of Cardiac Rhythm, Single (ICD-10-PCS; 2024-06-09)
PROC: 0BH17EZ Insertion of Endotracheal Airway into Trachea, Via Natural or Artificial Opening (ICD-10-PCS; 2024-06-09)
PROC: 0W9930Z Drainage of Right Pleural Cavity with Drainage Device, Percutaneous Approach (ICD-10-PCS; principal; 2024-06-10)
PROC: 5A12012 Performance of Cardiac Output, Single, Manual (ICD-10-PCS; 2024-06-10)
PROC: 5A2204Z Restoration of Cardiac Rhythm, Single (ICD-10-PCS; 2024-06-10)
DX: T40.411A Poisoning by fentanyl or fentanyl analogs, accidental (unintentional), initial encounter (principal); J96.01 Acute respiratory failure with hypoxia; I46.9 Cardiac arrest, cause unspecified; N17.0 Acute kidney failure with tubular necrosis; A41.9 Sepsis, unspecified organism; J18.9 Pneumonia, unspecified organism; J93.9 Pneumothorax, unspecified; E87.20 Acidosis, unspecified; N39.0 Urinary tract infection, site not specified; F17.210 Nicotine dependence, cigarettes, uncomplicated; Z79.899 Other long term (current) drug therapy
CPT/HCPCS: 31500; 31645; 32555; 36415; 36556; 36600; 70450; 71045; 71250; 80053; 80307; 81001; 82150; 82550; 82805; 83605; 83690; 83735; 84484; 84702; 85007; 85025; 85027; 85610; 85730; 87070; 87077; 87086; 87186; 87205; 92950; 92960; 93005; 94002; 94640; 99291; 99292; G0378; J0171; J0461; J2543